=== PATIENT | male | born 2000 | race Asian ===

== ENCOUNTER → 2021-05-01 | Outpatient (CLI) | payer OTHER ==
--- NOTE | 2021-05-01 12:51 | Diagnostic Imaging Report ---
INDICATION: Right wrist injury and pain. TIME OF EXAM: 12:30 PM 3 views right wrist were obtained. FINDINGS: The distal radius and ulna appear intact. Carpus appears intact. No fractures are seen. Soft tissues are unremarkable. IMPRESSION: No acute bony abnormality is detected. Dictated by: Dictated on workstation # [id number]
== END ==
LOC: RAD 11:57
PROVIDERS: ATTEND Internal Medicine
DX: S69.91XA Unspecified injury of right wrist, hand and finger(s), initial encounter (principal); X58.XXXA Exposure to other specified factors, initial encounter
CPT/HCPCS: 73110